=== PATIENT | female | born 1985 | race Caucasian/White ===

== ENCOUNTER 2023-03-26 18:16 | Emergency (ER) | payer SELFPAY ==
[2023-03-26] MEDS ORDERED: Cephalexin 250 MG CAP ONE (18:34)
== END 2023-03-26 18:39 | disposition home or self-care (01) ==
LOC: BURERS 18:16
DX: L04.9 Acute lymphadenitis, unspecified (principal); F17.210 Nicotine dependence, cigarettes, uncomplicated
CPT/HCPCS: 99283

== ENCOUNTER 2024-11-28 14:36 | Emergency (ER) | payer OTHER, SELFPAY | END 2024-11-28 15:30 | disposition home or self-care (01) | LOC: BURERS 14:36 | DX: S80.211A Abrasion, right knee, initial encounter (principal); L03.115 Cellulitis of right lower limb; R60.0 Localized edema; F17.290 Nicotine dependence, other tobacco product, uncomplicated; W55.03XA Scratched by cat, initial encounter | CPT/HCPCS: 99283 ==

== ENCOUNTER 2025-03-19 21:52 | Emergency (ER) | payer SELFPAY ==
[2025-03-19 22:26] LABS: #Basophils 0.1 thou/uL (0.0-0.2); #Eosinophils 0.2 thou/uL (0.0-0.7); #Lymphocytes 4.3 thou/uL (1.20-3.40); #Monocytes 0.8 thou/uL (0.11-0.59); #Neutrophils 5.3 thou/uL (1.40-6.50); %Basophils 1.3 % (0.0-1.0); %Eosinophils 2.2 % (0.0-10.0); %Lymphocytes 39.7 % (21.0-51.0); %Monocytes 7.4 % (0.0-10.0); %Neutrophils 49.4 % (42.0-75.0); Hematocrit 45.5 % (36.0-47.0); Hemoglobin 15.0 g/dL (12.0-16.0); Mean Corpuscular Hemoglobin 32.2 pg (27.0-31.0); Mean Corpuscular Volume 97.5 fl (78.0-98.0); Platelet Count 297 10x3/uL (130-400); Red Blood Cell (RBC) Count 4.67 mill/uL (4.20-5.40); White Blood Cell (WBC) Count 10.7 10x3/uL (4.8-10.8)
[2025-03-19 22:44] LABS: ALT (SGPT) 35 U/L (Less than 34); AST (SGOT) 30 U/L (11-34); Albumin 4.4 g/dL (3.1-4.5); Alkaline Phosphatase 65 U/L (40-110); Anion Gap 19 mmol/L (10-20); BUN (Urea Nitrogen) 13 mg/dL (7.0-18.7); Bilirubin, Total 0.2 mg/dL (0.3-1.2); Calc. Creatinine Clearance 0 mL/min (70-130); Calcium 9.4 mg/dL (7.8-10.44); Carbon Dioxide 22 mmol/L (22-29); Chloride 100 mmol/L (98-107); Globulin 3.8 g/dL (2.4-3.5); Glucose 100 mg/dL (70-105); Potassium 4.0 mmol/L (3.5-5.1); Sodium 137 mmol/L (136-145)
[2025-03-19 22:50] LABS: Troponin I 0.013 ng/mL (< 0.028)
[2025-03-19] MEDS ORDERED: predniSONE 20 MG TAB ONE (23:19)
[2025-03-19] MEDS ORDERED: Aspirin Chewable 81 MG TAB ONE (23:19)
== END 2025-03-19 23:32 | disposition home or self-care (01) ==
LOC: BURERS 21:52
DX: R07.89 Other chest pain (principal); R05.9 Cough, unspecified; F17.290 Nicotine dependence, other tobacco product, uncomplicated; Z79.899 Other long term (current) drug therapy
CPT/HCPCS: 71045; 80053; 83880; 84484; 85025; 93005; J7512